=== PATIENT | female | born 1965 | race Two or more races ===

== ENCOUNTER 2016-07-25 05:31 | Day surgery (SDC) | payer OTHER ==
[2016-07-24 09:46] VITALS: BMI 29.9
[2016-07-25] MEDS ORDERED: DEXAMETHASONE SOD PHOSPHATE 4 MG/1 ML VIAL ONE (14:08)
[2016-07-25] MEDS ORDERED: ONDANSETRON 4 MG/2 ML VIAL ONE (14:08)
[2016-07-25] MEDS ORDERED: MIDAZOLAM HCL 2 MG/2 ML SINGLE DOSE VIAL ONE (14:09)
[2016-07-25] MEDS ORDERED: PROPOFOL 20 ML ONE (14:10)
[2016-07-25] MEDS ORDERED: ACETAMINOPHEN INJECTION 100 ML IVPB ONE (15:21)
[2016-07-25] MEDS ORDERED: ONDANSETRON 4 MG/2 ML VIAL IVPB PRN (15:22)
[2016-07-25] MEDS ORDERED: oxyCODONE HCL 5 MG TABLET PO PRN (15:22)
[2016-07-25] MEDS ORDERED: ACETAMINOPHEN 325 MG TABLET (FP) PO PRN (15:23)
--- NOTE | 2016-07-25 15:25 | HP ---
History & Physical Update - History History: No Change - Physical Physical: No Change - Assessment Assessment: No Change - Plan Plan: No Change (Consent signed and witnessed, all questions answered)
[2016-07-25] MEDS ORDERED: ACETAMINOPHEN 1000 MG/100 ML VIAL (NON FORMULARY) IVPB PRN (15:26)
--- NOTE | 2016-07-25 15:29 | OP ---
Operative Note - Note: Operative Date: 07/25/16 Pre-Operative Diagnosis: 51 yo P2 with menometrorhagia, polyp on the Sonogram Operation: Hysteroscopy, Polypectomy, Dialation, Curettage Findings: 1. Menstual Endometrium 2. Endometrial polyp 3. Endocervical polyp Post-Operative Diagnosis: Same as Pre-op Surgeon: Melanie Thacker Anesthesiologist/HEALTH COORDINATOR: Holley Rodrigues Anesthesia: MAC Specimens Removed: 1. Endometrial polyp. 2. Endometrial curettings. 3. Endocervical polyp Estimated Blood Loss (mls): 10 Drains & Tubes with Location: Fluid managment 420cc deficit Drains, Volume Out (mls): 150 Fluid Volume Replaced (mls): 500 Operative Report Dictated: Yes
[2016-07-25] MEDS ORDERED: ELECTROLYTE-148 SOLN 1,000 ML IV SCH (15:30)
[2016-07-25] MEDS ORDERED: LACTATED RINGERS SOLUTION 1,000 ML IV SCH (15:30)
[2016-07-25 16:29] VITALS: TEMP 98.2
[2016-07-25 18:44] VITALS: BP 139/78; PULSE 58
--- NOTE | 2016-07-26 12:43 | OP ---
DATE OF OPERATION: 07/25/2016 PREOPERATIVE DIAGNOSIS: A 51-year-old para 2 with menometrorrhagia, polyp on the sonogram. OPERATION: Hysteroscopy, polypectomy, dilation and curettage. FINDINGS: 1. Menstrual endometrium. 2. Endometrial polyps. 3. Endocervical polyps. POSTOPERATIVE DIAGNOSIS: A 51-year-old para 2 with menometrorrhagia, polyp on the sonogram. SURGEON: Melanie Thacker MD ANESTHESIOLOGIST: Holley Rodrigues MD ANESTHESIA: MAC. SPECIMENS SENT TO PATHOLOGY: 1. Endometrial polyps 2. Endometrial curettings. 3. Endocervical polyps. ESTIMATED BLOOD LOSS: 10 mL. URINE OUTPUT: 150 mL FLUIDS: Patient received 500 mL of PlasmaLyte and fluid deficit was 420 mL. DESCRIPTION OF THE OPERATIVE PROCEDURE: After assuring informed consent, patient was brought to the operating room where she was placed in dorsal lithotomy position, identified by her name band. Time-out was called after assuring adequate MAC anesthesia. Cervix was gradually dilated with Mari dilators to accommodate 5 mm hysteroscope. The hysteroscope was introduced, and above findings were noted. The gauge 3 sharp surgical curette was used to remove endometrial polyps, endometrial curettings, and endocervical polyps. The hysteroscope was reintroduced into the uterus with finding of normal integrity of the uterus was maintained, and uterine contents were found to be empty and well denuded endometrium. Patient tolerated the procedure well. All instruments were removed from the vagina. Patient was placed in the supine position and brought to the recovery room in stable condition. Bernice [id number]
--- NOTE | 2016-07-27 14:42 | PATH ---
Surgical Pathology Report Patient Name: RICCO FAIRCHILD [facility]. Rec. #: [id number] /Age/Gender: 1965 (Age: 51) / F Account: [id number] Location: [facility] SURGICAL Taken: 07/26/2016 Received: 07/26/2016 Reported: 07/27/2016 Physicians: Melanie Thacker M.D. Specimen(s) Received A: ENDOMETRIAL POLYP B: ENDOMETRIAL CURETTINGS C: ENDOCERVICAL POLYP Clinical History Endometrial polyp, menorrhagia Final Diagnosis A. ENDOMETRIAL POLYP, POLYPECTOMY: FRAGMENTS OF ENDOMETRIAL POLYP WITH FOCAL STROMAL BREAKDOWN CHANGE. FRAGMENTS OF BENIGN ENDOCERVICAL TISSUE. B. ENDOMETRIUM, CURETTAGE: FRAGMENTS OF ENDOMETRIAL POLYP WITH FOCAL STROMAL BREAKDOWN CHANGE. BACKGROUND FRAGMENTS OF PREDOMINANTLY SECRETORY TYPE ENDOMETRIUM WITH EXTENSIVE STROMAL AND FOCAL GLANDULAR BREAKDOWN CHANGE. FRAGMENTS OF BENIGN SMOOTH MUSCLE. FRAGMENTS OF BENIGN ENDOCERVICAL TISSUE. FRAGMENTS OF BENIGN SQUAMOUS EPITHELIUM. C. ENDOCERVICAL POLYP, POLYPECTOMY: FRAGMENTS OF BENIGN ENDOCERVICAL TISSUE. FRAGMENTS OF BENIGN SMOOTH MUSCLE. Electronically Signed Luis Enrique Espana M.D. Gross Description A. Received in formalin labeled "endometrial polyp" is a 2.4 x 1.5 x 0.4 cm aggregate of fletcher-brown soft tissue fragments. The formalin is filtered and the specimen is entirely submitted in one cassette. B. Received in formalin labeled "endometrial curetting" is a 6.0 x 5.4 x 0.4 cm aggregate of fletcher soft tissue fragments admixed with blood clot. The formalin is filtered and the specimen is entirely submitted in 6 cassettes. C. Received in formalin labeled "endocervical polyp" is a 2.8 x 2.1 x 0.3 cm aggregate of fletcher-brown soft tissue fragments admixed with blood clot. The formalin is filtered and the specimen is entirely submitted in one cassette. DL07/26/2016 saudi07/26/2016
== END 2016-07-25 18:30 | disposition home or self-care (01) ==
LOC: JASU-SURG 05:31
PROVIDERS: ATTEND Obstetrics & Gynecology
PROC: 0UDB8ZX Extraction of Endometrium, Via Natural or Artificial Opening Endoscopic, Diagnostic (ICD-10-PCS; 2016-07-25)
PROC: 0UBC8ZX Excision of Cervix, Via Natural or Artificial Opening Endoscopic, Diagnostic (ICD-10-PCS; principal; 2016-07-25 13:00)
PROC: 0UB98ZX Excision of Uterus, Via Natural or Artificial Opening Endoscopic, Diagnostic (ICD-10-PCS; 2016-07-25 13:00)
DX: N92.0 Excessive and frequent menstruation with regular cycle (principal); N84.0 Polyp of corpus uteri; N84.1 Polyp of cervix uteri
CPT/HCPCS: 84703; 88305-TC; 94760

== ENCOUNTER 2022-07-11 04:30 | Day surgery (SDC) | payer OTHER ==
[2022-07-10 09:33] VITALS: BMI 30.9
[2022-07-11 09:47] VITALS: TEMP 97.7
[2022-07-11 16:48] VITALS: BP 103/50; PULSE 63; RESP 13
== END 2022-07-11 11:30 | disposition home or self-care (01) ==
LOC: JASU-ENDO 04:30
PROVIDERS: ATTEND Student in an Organized Health Care Education/Training Program
PROC: 0DJD8ZZ Inspection of Lower Intestinal Tract, Via Natural or Artificial Opening Endoscopic (ICD-10-PCS; principal; 2022-07-11 10:00)
DX: K57.30 Diverticulosis of large intestine without perforation or abscess without bleeding (principal); D12.2 Benign neoplasm of ascending colon; D12.4 Benign neoplasm of descending colon
CPT/HCPCS: 88305-TC

== ENCOUNTER 2023-02-03 16:26 | Emergency (ER) | payer OTHER ==
[2023-02-03 16:52] VITALS: BP 141/84; PULSE 63; RESP 16; TEMP 98.5; BMI 30.2
== END 2023-02-03 19:10 | disposition home or self-care (01) ==
LOC: JERFT 16:26
DX: M54.2 Cervicalgia (principal); R42 Dizziness and giddiness; V49.50XA Passenger injured in collision with unspecified motor vehicles in traffic accident, initial encounter; Y93.I9 Activity, other involving external motion; Y92.9 Unspecified place or not applicable
CPT/HCPCS: 70450-TC; 72040-TC; 82962; 93005; 93010; 99285-25